=== PATIENT | female | born 1995 ===

== ENCOUNTER → 2024-02-02 | Day surgery (SDC) | payer MEDICAID ==
[~2024-02-02] VITALS: Ht 179 cm; Wt 70.3 kg
[~2024-02-02] MED LIST: ACETIC ACID ONE; FERRIC SUBSULFATE 8 ML VIAL ONE; LIDOCAINE HCL/EPINEPHRINE 50 ML VIAL ONE; Lactated Ringer's Solution 1,000 ML IV ONE; Lidocaine Hydrochloride 2% 10 ML AMP IM ONE; Lidocaine Hydrochloride 30 ML VIAL ONE; Midazolam Hydrochloride 2 MG/2 ML VIAL IV ONE; ONE-DAILY MULT1 EACH PO; PROPOFOL 200 MG/20 ML VIAL IV ONE; [UNRECOGNIZED DRUG - OTHER] PO; fentaNYL CITRATE 100 MCG/2 ML VIAL IV ONE
[2024-02-02 10:52] VITALS: BP 121/67
[2024-02-02 12:37] VITALS: BP 92/54
[2024-02-02 12:52] VITALS: BP 118/79
[2024-02-02 13:10] VITALS: BP 120/82
== END | disposition home or self-care (01) ==
LOC: SDC 01-29 08:00
PROVIDERS: ATTEND Obstetrics & Gynecology
DX: R87.613 High grade squamous intraepithelial lesion on cytologic smear of cervix (HGSIL) (principal); R87.810 Cervical high risk human papillomavirus (HPV) DNA test positive; F41.9 Anxiety disorder, unspecified; F32.A Depression, unspecified; F17.210 Nicotine dependence, cigarettes, uncomplicated; F10.90 Alcohol use, unspecified, uncomplicated; Z98.890 Other specified postprocedural states; Z79.899 Other long term (current) drug therapy